=== PATIENT | female | born 1975 | race Caucasian/White ===

== ENCOUNTER 2025-08-29 22:41 | Emergency (ER) | payer BC ==
[~2025-08-29] VITALS: Ht 177.8 cm; Wt 90.7 kg
== END 2025-08-29 23:45 | disposition home or self-care (01) ==
LOC: ED 22:41
DX: F41.9 Anxiety disorder, unspecified (principal); I10 Essential (primary) hypertension; Z88.6 Allergy status to analgesic agent; Z88.8 Allergy status to other drugs, medicaments and biological substances